=== PATIENT | female | born 1955 | race Caucasian/White ===

== ENCOUNTER 2016-07-24 08:48 | Day surgery (SDC) | payer MEDICARE ==
--- NOTE | ~2016-07-24 | OP ---
Record Of Operation [facility] [address] [place] [id number] NAME: VERONICA ARMENDARIZ : 53 STATUS : REG [facility]#: [id number] AGE: 60 ADM/REG DATE : 07/24/16 MR#: [id number] REPORT SERV DATE: 07/24/16 DICTATED BY: BABITA FERRELL DATE: 07/24/16 REPORT STATUS : Draft TRANSCRIBED BY: MODL DATE: 07/24/16 DATE OF PROCEDURE: 07/24/2016 PREOPERATIVE DIAGNOSIS: Leaking voice prosthesis #6 [employer]. POSTOPERATIVE DIAGNOSIS: Leaking voice prosthesis #6 [employer]. PROCEDURE PERFORMED: #6 [employer] voice prosthesis exchange. SURGEON: Babita Ferrell M.D. TRANSPORTATION MECHANIC: None. ANESTHESIA: None. COMPLICATIONS: None. CONDITION: Stable to recovery. INDICATIONS: A 60-year-old female with leaking voice prosthesis. PROCEDURE IN DETAIL: The patient was identified in preoperative holding, taken back to the operating room. She was left on the gurney. The #6 voice prosthesis was removed under direct visualization and a #6 [employer] voice prosthesis was replaced using voice prosthesis inserting instrument that comes with the kit. This was done without difficulty. She had good voicing after the exchange. She was taken back to recovery in stable condition. PH/BRYANL Babita Ferrell M.D. / [id number] CC: Babita Ferrell M.D.
[~2016-07-24 08:48] MED LIST: ADVAIR230P INH; ALBUTEROL SULFATE; ALEVE220 MG PO; ASAB PO; ATRONASAL3 NAS; ATROVENTUD INH; CALTRA600D PO; CEFT5 PO; CELEXA10 PO; CELEXA20 PO; CHERATUSSIN PO/LIQ; DUONEB INH; FLONASE NAS; FLORASTOR250 MG PO; IPRATROPIUM; LEVAQUIN5T PO; LEVAQUIN750 MG PO; LEVOTHROID112 MCG PO; LEVOTHYROXIN100 MCG PO; LEVOTHYROXIN112 MCG PO; LEVOTHYROXIN75 MCG PO; LORTABLIQ PO; MAGNESIUM PO; MUCINEX1200 MG PO; NORV25 PO; NUCYNTA50 MG PO; NYS500UDL PO; OS500+D PO; PR25 PO; PRILO PO; PRILOSEC40 MG PO; PROAIR HFA INH; PULMICORT180 MCG INH; ROCALTROL 0.0.25 MCG PO; ROCALTROL0.5 MCG OR; STERAPRED DS10 MG; SYN075 PO; VENTOLIN HFA INH; VIACTIV PO; X25 PO; X5 PO; [UNRECOGNIZED DRUG - SUPPLY]
== END 2016-07-24 12:35 | disposition home or self-care (01) ==
LOC: SDC 08:48
PROVIDERS: Specialist
PROC: 0CH Mouth and Throat, Insertion (ICD-10-PCS; principal; 2016-07-24 10:15)
DX: T85.638A Leakage of other specified internal prosthetic devices, implants and grafts, initial encounter (principal); J44.9 Chronic obstructive pulmonary disease, unspecified; K21.9 Gastro-esophageal reflux disease without esophagitis; F41.9 Anxiety disorder, unspecified; E03.9 Hypothyroidism, unspecified; F32.9 Major depressive disorder, single episode, unspecified; Z91.041 Radiographic dye allergy status; Z79.899 Other long term (current) drug therapy; Z79.82 Long term (current) use of aspirin; Z98.890 Other specified postprocedural states; Z85.21 Personal history of malignant neoplasm of larynx